=== PATIENT | male | born 1955 | race Caucasian/White ===

== ENCOUNTER 2017-05-21 00:44 | Emergency (ER) | payer OTHER ==
[~2017-05-21] VITALS: Ht 167.6 cm; Wt 86.2 kg
--- NOTE | 2017-05-21 01:06 | NUR ---
BB SELF; LOWER ABD PAIN, SHARP ON AND OFF X 1 MONTH DENIES N/V/DIARRHEA. PT AOX3. RR EVEN AND UNLABORED. NO SOB NOTED. NO NVD AT THIS TIME. PT GOWNED AND PLACED ON MONITOR WAITING FOR MD LA.
--- NOTE | 2017-05-21 01:09 | NUR ---
PT REFUSED IV INSERTION AND BLOOD DRAW. RISK AND BENEFITS EXPLAINED X3. PT STATES " I DONT WANT ANYTHING DONE BECAUSE IM GETTING MY BLOOD DRAWN NEXT WEEK" DR. BUTTERFIELD MADE AWARE.
--- NOTE | 2017-05-21 01:12 | NUR ---
DR. BUTTERFIELD AT BEDSIDE SPEAKING TO PT REGARDING POC
--- NOTE | 2017-05-21 01:20 | NUR ---
Patient does not wish to proceed with medical care recommended by Dr. Servin. Patient given information related to possible complications, up to and including , which could occur as a result of leaving the hospital at this time. Patient verbalizes understanding of risks involved due to leaving against medical advice. Patient has signed AMA form.
--- NOTE | 2017-05-21 01:22 | NUR ---
Patient discharged to home in stable condition. Written and verbal after care instructions given. Patient verbalizes understanding of instruction. PT ambulatory with a steady gait
[2017-05-21 01:25] VITALS: BP 138/78
[2017-05-21] MEDS ORDERED: ONDANSETRON HCL/PF 4 MG/2 ML VIAL IVP ONE (01:30)
[2017-05-21] MEDS ORDERED: IV NS 0.9% 1,000 ML BAG IV ONE (01:30)
[2017-05-21] MEDS ORDERED: MORPHINE SULFATE INJ 2 MG/ML DISP.SYRIN IV ONE (01:30)
== END 2017-05-21 01:26 | disposition home or self-care (01) ==
LOC: ER 00:46
DX: R10.31 Right lower quadrant pain (principal); Z53.20 Procedure and treatment not carried out because of patient's decision for unspecified reasons
CPT/HCPCS: 93005; 99283; A4606; Z7610